=== PATIENT | male | born 1995 ===

== ENCOUNTER 2023-01-10 15:54 | Outpatient (CLI) | payer OTHER | END 2023-01-10 15:55 | disposition home or self-care (01) | LOC: RAD-FRANK 15:54 | PROVIDERS: ATTEND Nurse Practitioner Family | DX: M25.562 Pain in left knee (principal); M25.572 Pain in left ankle and joints of left foot; S82.832A Other fracture of upper and lower end of left fibula, initial encounter for closed fracture ==